=== PATIENT | male | born 1965 | race Caucasian/White ===

== ENCOUNTER 2021-08-10 07:08 | Outpatient (CLI) | payer MEDICARE, MEDICAID, SELFPAY ==
--- NOTE | ~2021-08-10 | NM_ITS ---
EXAMINATION: NM lonny stress w perfusion DATE: 08/10/2021 10:21 INDICATION: Chest pain TECHNIQUE: Rest images were obtained following intravenous administration of 11.5 mCi Tc99m tetrofosm in (Myoview). The patient was infused intravenously with Lexiscan (Regadenoson). Then, a 5.1 mCi Tc99 m tetrofosmin (Myoview) was administered intravenously, and stress images were obtained. Data was rec onstructed into short axis and horizontal and vertical long axis SPECT images. Gated SPECT images wer e also obtained. COMPARISON: None. FINDINGS: Small partially reversible mild perfusion defect at the apical septal, apical inferior and mid inferoseptal segments consistent with combination of mild ischemia and infarct. There is normal left ventricular chamber size, wall motion and ejection fraction. Left ventricular ejection fraction measures 61%. IMPRESSION: 1. Small mild partially reversible perfusion defect at the apical septal, apical inferior and mid inf eroseptal segments which could represent combination of mild ischemia superimposed over infarct or di aphragmatic attenuation artifact.. 2. Left ventricular ejection fraction measuring 61%. Reviewed, dictated and finalized at location A. IMPRESSION: 1. Small mild partially reversible perfusion defect at the apical septal, apica l inferior and mid inferoseptal segments which could represent combination of m ild ischemia superimposed over infarct or diaphragmatic attenuation artifact.. 2. Left ventricular ejection fraction measuring 61%.
--- NOTE | 2021-08-10 07:48 | ECHO_ITS ---
Patient Info Name: Zelalem Armenta Age: 55 years : 1965 Gender: Male Ht: 72 in Wt: 250 lbs BSA: 2.44 m2 HR: 66 bpm BP: 132 / 86 mmHg Technical Quality: Fair Exam Date: 08/10/2021 8:06 AM Exam Location: [facility] Patient Status: Outpatient Admit Date: 08/10/2021 Staff Ordering Physician: Mook Dotson DO Tongue Binder: Marilu Mann RDCS Attending Provider: Mook Dotson DO Referring Physician: Mauri RICHARDS; Exam Type: CA echo doppler color flow Study Info Indications R06.00 - Dyspnea, unspecified Complete two-dimensional, color flow and Doppler transthoracic echocardiogram is performed. Summary 1. Complete two-dimensional, color flow and Doppler transthoracic echocardiogram is performed. 2. Left ventricular chamber dimension is normal. 3. Left ventricular systolic function is normal, estimated at 55-60%. 4. The left ventricular diastolic function is grade I diastolic dysfunction. 5. E/e' 9 is minimally elevated. 6. Global longitudinal strain is slightly abnormal at -16.9%. 7. No pulmonary hypertension, estimated pulmonary arterial systolic pressure is 22 mmHg. Left Ventricle E/e' 9 is minimally elevated. Global longitudinal strain is slightly abnormal at -16.9%. Left ventricular chamber dimension is normal. Left ventricular systolic function is normal, estimated at 55-60%. The left ventricular diastolic function is grade I diastolic dysfunction. Right Ventricle Right ventricular chamber dimension is normal. Right ventricular systolic function is normal. Left Atria Left atrial chamber dimension is normal. Right Atria Right atrial chamber dimension is normal. Aortic Valve The aortic valve is not well visualized. Cannot determine number of aortic valve leaflets as no parasternal short axis views obtained. There is no aortic valve stenosis. There is no aortic valve regurgitation. Pulmonic Valve The pulmonic valve is not well visualized. Mitral Valve There is no mitral valve stenosis. There is no mitral valve regurgitation. Tricuspid Valve There is no tricuspid valve regurgitation. No pulmonary hypertension, estimated pulmonary arterial systolic pressure is 22 mmHg. Pericardium/Pleural There is no pericardial effusion. Inferior Vena Cava Normal inferior vena cava with >50% collapse upon inspiration consistent with normal right atrial pressure, 5 mmHg. Aorta The aortic root size at the sinus of Valsalva is normal. Left Ventricular Outflow Tract Name Value Normal LVOT 2D LVOT Diameter 2.0 cm LVOT Doppler LVOT Peak Gradient 4 mmHg LVOT Mean Gradient 2 mmHg LVOT VTI 20 cm LVOT VTI/AV VTI Ratio 0.8 LVOT Stroke Volume 66 ml LVOT CO 4.1 l/min LVOT CI 1.7 l/min/m2 Pulmonic Valve Name Value Normal
--- NOTE | 2021-08-10 07:48 | EST_ITS ---
Patient Info Name: Zelalem Armenta Age: 55 years : 1965 Gender: Male Ht: 72 in Wt: 250 lbs BSA: 2.44 m2 HR: 61 bpm BP: 127 / 89 mmHg Heart Rhythm: Sinus Rhythm Exam Date: 08/10/2021 9:34 AM Exam Location: [facility] Stress Patient Status: Outpatient Admit Date: 08/10/2021 Staff Ordering Physician: Mook Dotson DO Attending Provider: Mook Dotson DO Exercise Technologist: Aleja Renae CT Exam Type: CA stress lonny w NM Study Info Indications R06.00 - Dyspnea, unspecified R07.9 - Chest pain, unspecified A regadenoson stress test was performed. Summary 1. 1. Negative lexiscan stress test for ischemic ST changes by ECG criteria. 2. 2. Hypertensive response to lexiscan. 3. 3. Nuclear scan to follow and will be reported separately. Please correlate with it. 4. 4. Patient informed of the above results. Protocol: Lexiscan Stress ECG Details Stage: REST Duration (min): 1 min : 25 sec HR (bpm): 64 SBP (mmHg): 127 DBP (mmHg): 87 Stage: REST Duration (min): 10 min : 37 sec HR (bpm): 63 SBP (mmHg): 127 DBP (mmHg): 87 Stage: STAGE 1 Duration (min): 1 min : 0 sec HR (bpm): 82 SBP (mmHg): 127 DBP (mmHg): 87 Stage: RECOVERY Duration (min): 1 min : 0 sec HR (bpm): 104 SBP (mmHg): 227 DBP (mmHg): 74 Stage: RECOVERY Duration (min): 2 min : 0 sec HR (bpm): 93 SBP (mmHg): 193 DBP (mmHg): 78 Stage: RECOVERY Duration (min): 3 min : 0 sec HR (bpm): 87 SBP (mmHg): 193 DBP (mmHg): 78 Stage: RECOVERY Duration (min): 4 min : 0 sec HR (bpm): 89 SBP (mmHg): 250 DBP (mmHg): 78 Stage: RECOVERY Duration (min): 5 min : 0 sec HR (bpm): 84 SBP (mmHg): 258 DBP (mmHg): 80 Stage: RECOVERY Duration (min): 5 min : 53 sec HR (bpm): 79 SBP (mmHg): 254 DBP (mmHg): 81 Rest HR: 63 bpm Peak HR: 104 bpm Rest Sys BP: 127 mmHg Peak Sys BP: 258 mmHg Max Pred HR: 164 bpm % Max Pred HR: 63 % Target HR: 139 bpm Max RPP: 26,832 bpm*mmHg BP Response: Patient exhibited a hypertensive response with stress Termination Reason: Completed protocol Cardiac Symptoms: Shortness of breath, Dizziness Total Time: 1 min : 0 sec Rest Santiago BP: 87 mmHg Peak Santiago BP: 80 mmHg Total Dose: 0.4 mg Resting ECG Sinus rhythm, cannot r/o septal infarct, age indeterminate. Stress ECG No ST changes. Arrhythmias None. Report Signatures
== END 2021-08-10 07:09 | disposition home or self-care (01) ==
PROVIDERS: PCP Physician Assistant; Visit Provider Internal Medicine Cardiovascular Disease
DX: R07.89 Other chest pain (principal); R06.00 Dyspnea, unspecified
CPT/HCPCS: 78452; 93017; 93306; A9502; J2785

== ENCOUNTER 2024-07-29 13:20 | Outpatient (CLI) | payer MEDICARE, SELFPAY ==
--- NOTE | ~2024-07-29 | XR_ITS ---
Left Forearm AP and lateral views of the left forearm were performed. Clinical History: Contusion Findings: Subacute healing fracture of the distal fibular shaft is present, with callus formation abo ut the fracture site. No other fracture or dislocation seen. Osseous alignment in anatomic. Joint s paces are preserved. Soft tissues are unremarkable. Impression: Subacute healing fracture of the distal third of the ulnar shaft. Reviewed, dictated and finalized at location . Impression: Subacute healing fracture of the distal third of the ulnar shaft.
--- NOTE | ~2024-07-29 | XR_ITS ---
Left wrist Technique: PA, oblique, lateral, and ulnar deviation views were obtained. Clinical History: Contusion Findings: There is a subacute transverse fracture of the distal third of the ulnar shaft with early c alcification of the fracture site. No other fracture or dislocation seen. Joint spaces are intact.. S oft tissues are unremarkable. Impression: Subacute healing fracture of the distal third of the ulnar shaft, as detailed above. Reviewed, dictated and finalized at location M. Impression: Subacute healing fracture of the distal third of the ulnar shaft, as detailed a judie.
== END 2024-07-29 13:21 | disposition home or self-care (01) ==
PROVIDERS: PCP Physician Assistant; Visit Provider Physician Assistant
DX: S52.602D Unspecified fracture of lower end of left ulna, subsequent encounter for closed fracture with routine healing (principal); X58.XXXD Exposure to other specified factors, subsequent encounter
CPT/HCPCS: 73090; 73110